=== PATIENT | female | born 1950 | race Caucasian/White ===

== ENCOUNTER 2016-10-31 14:00 | Observation (INO) | payer OTHER ==
[~2016-10-31] VITALS: Ht 154.9 cm; Wt 82.0 kg
[~2016-10-31 14:00] MED LIST: CALCET CREAMY1 EACH PO; DIOVAN320 MG PO; IRON325 MG PO; LO-DOSE ASPIRIN81 M2 PO; NEXIUM40 MG PO; OCUVITE TABLET1 EACH PO; PRAVASTATIN SOD20 MG PO; SYNTHROID88 MCG PO; VITAMIN D31000 UNIT PO
[2016-10-31 15:09] LABS: HEMATOCRIT 41.1 % (36.0-46.0); MCH 29.2 PG (29.0-34.0); MCHC 32.8 G/DL (30.0-36.0); MCV 88.8 FL (83-99); MEAN PLAT.VOLUME 9.3 uM^3 (9.5-12.4); PLATELET COUNT 298 K/uL (156-360); RBC DIS.WIDTH-CV 13.2 % (11.8-14.6); RED BLOOD COUNT 4.63 M/uL (3.80-5.20)
[2016-10-31 15:20] LABS: CHLORIDE 105 mEq/L (99-109); POTASSIUM 4.7 mEq/L (3.7-5.4); SODIUM 139 mEq/L (136-147)
[2016-10-31 15:21] LABS: GLUCOSE 137 mg/dL (70-99)
[2016-10-31 15:23] LABS: ANION GAP 11 MEQ/L (2-14)
[2016-10-31 15:25] LABS: GFR ESTIMATE (CALCULATED) 53 mL/min/
[2016-10-31 15:26] LABS: UREA NITROGEN (BUN) 12 mg/dL (9-23)
[2016-10-31 15:29] LABS: TROP-I INTERPRETATION NEGATIVE; TROPONIN-I < 0.01 ng/mL (0.0-0.30)
[2016-10-31 17:49] LABS: TROP-I INTERPRETATION NEGATIVE; TROPONIN-I < 0.01 ng/mL (0.0-0.30)
[2016-10-31] MEDS ORDERED: ENZYME DIGEST1 EACH PO (18:30)
[2016-10-31] MEDS ORDERED: SYNTHROID88 MCG PO (18:30)
[2016-10-31] MEDS ORDERED: ONE-A-DAY ESSE1 EAC1 PO (18:30)
[2016-10-31 20:56] VITALS: BP 141/67
[2016-11-01 00:07] VITALS: BP 138/66
[2016-11-01 02:37] LABS: TROP-I INTERPRETATION NEGATIVE; TROPONIN-I < 0.01 ng/mL (0.0-0.30)
[2016-11-01 03:24] LABS: HDL CHOLESTEROL 54 MG/DL (Desirable>=50); LDL CHOLESTEROL 132 mg/dL (Desirable<100); NON-HDL CHOLESTEROL 155 mg/dL (Desirable<160); TOTAL CHOLESTEROL 209 mg/dL (Desirable<200); TRIGLYCERIDES 114 MG/DL (Normal: <150)
[2016-11-01 04:12] VITALS: BP 125/75
[2016-11-01 09:21] VITALS: BP 133/74
[2016-11-01 12:37] VITALS: BP 120/72
[2016-11-01] MEDS ORDERED: VENTOLIN HFA18 GM IH (14:08)
[2016-11-01] MEDS ORDERED: NEXIUM40 MG PO (14:09)
[2016-11-02] MEDS ORDERED: BENADRYL50 MG PO (17:10)
[2016-11-02] MEDS ORDERED: ZANTAC150 MG PO (17:11)
== END 2016-11-01 15:55 | disposition home or self-care (01) ==
LOC: EME 14:00 → EDOF 19:13 → 5WEST 19:13 → EDOF 19:13 → 5WEST 20:25
PROVIDERS: Emergency Medicine; Physician Assistant Medical
DX: R07.9 Chest pain, unspecified (principal); R00.2 Palpitations; R06.2 Wheezing; J30.2 Other seasonal allergic rhinitis; K44.9 Diaphragmatic hernia without obstruction or gangrene; K21.9 Gastro-esophageal reflux disease without esophagitis; I12.9 Hypertensive chronic kidney disease with stage 1 through stage 4 chronic kidney disease, or unspecified chronic kidney disease; N18.3 Chronic kidney disease, stage 3 (moderate); Z79.82 Long term (current) use of aspirin; E05.90 Thyrotoxicosis, unspecified without thyrotoxic crisis or storm; E78.5 Hyperlipidemia, unspecified; M79.602 Pain in left arm; Z88.7 Allergy status to serum and vaccine
CPT/HCPCS: 71020; 80048; 80061; 84484; 85027; 93005; 94640 76; 99202; 99281; 99285; G0378; J1650

== ENCOUNTER 2016-11-02 14:09 | Emergency (ER) | payer OTHER ==
[~2016-11-02] VITALS: Ht 154.9 cm; Wt 80.9 kg
[~2016-11-02 14:09] MED LIST changes: +ENZYME DIGEST1 EACH PO; +ONE-A-DAY ESSE1 EAC1 PO; +VENTOLIN HFA18 GM IH
[2016-11-02 15:42] LABS: HEMATOCRIT 43.8 % (36.0-46.0); MCH 28.8 PG (29.0-34.0); MCV 90.1 FL (83-99); MEAN PLAT.VOLUME 9.6 uM^3 (9.5-12.4); PLATELET COUNT 329 K/uL (156-360); RBC DIS.WIDTH-CV 13.6 % (11.8-14.6); RED BLOOD COUNT 4.86 M/uL (3.80-5.20)
[2016-11-02 15:50] LABS: CHLORIDE 108 mEq/L (99-109); SODIUM 142 mEq/L (136-147)
[2016-11-02 15:52] LABS: GLUCOSE 116 mg/dL (70-99)
[2016-11-02 15:54] LABS: ANION GAP 10 MEQ/L (2-14)
[2016-11-02 15:56] LABS: GFR ESTIMATE (CALCULATED) 53 mL/min/
[2016-11-02 15:59] LABS: UREA NITROGEN (BUN) 22 mg/dL (9-23)
[2016-11-02 16:32] LABS: TROP-I INTERPRETATION NEGATIVE; TROPONIN-I < 0.01 ng/mL (0.0-0.30)
[2016-11-02] MEDS ORDERED: BENADRYL50 MG PO (17:10)
[2016-11-02] MEDS ORDERED: ZANTAC150 MG PO (17:11)
[2016-11-02 17:28] VITALS: BP 152/88
== END 2016-11-02 17:32 | disposition home or self-care (01) ==
LOC: EME 14:09
PROVIDERS: Physician Assistant
DX: K22.4 Dyskinesia of esophagus (principal); Z87.442 Personal history of urinary calculi; E78.5 Hyperlipidemia, unspecified; E03.9 Hypothyroidism, unspecified; I10 Essential (primary) hypertension
CPT/HCPCS: 70360; 71020; 80048; 84484; 85027; 93005; 99281; 99284

== ENCOUNTER 2016-11-12 23:19 | Emergency (ER) | payer OTHER ==
[~2016-11-12] VITALS: Ht 154.9 cm; Wt 80.5 kg
[~2016-11-12 23:19] MED LIST changes: +BENADRYL50 MG PO; +ZANTAC150 MG PO
[2016-11-13 00:17] LABS: HEMATOCRIT 38.3 % (36.0-46.0); MCH 29.6 PG (29.0-34.0); MCHC 33.4 G/DL (30.0-36.0); MCV 88.5 FL (83-99); MEAN PLAT.VOLUME 9.8 uM^3 (9.5-12.4); PLATELET COUNT 275 K/uL (156-360); RBC DIS.WIDTH-CV 13.2 % (11.8-14.6); RBC DIS.WIDTH-SD 43.3 % (39-53); RED BLOOD COUNT 4.33 M/uL (3.80-5.20); WHITE BLOOD COUNT 9.5 K/uL (4.1-10.2)
[2016-11-13 00:26] LABS: CHLORIDE 108 mEq/L (99-109); POTASSIUM 3.3 mEq/L (3.7-5.4); SODIUM 144 mEq/L (136-147)
[2016-11-13 00:28] LABS: GLUCOSE 113 mg/dL (70-99)
[2016-11-13 00:29] LABS: ANION GAP 14 MEQ/L (2-14)
[2016-11-13 00:32] LABS: GFR ESTIMATE (CALCULATED) 59 mL/min/
[2016-11-13 00:33] LABS: UREA NITROGEN (BUN) 12 mg/dL (9-23)
[2016-11-13 00:46] LABS: TROP-I INTERPRETATION NEGATIVE; TROPONIN-I < 0.01 ng/mL (0.0-0.30)
[2016-11-13 02:23] VITALS: BP 134/84
[2016-11-14] MEDS ORDERED: KLOR-CON20 MEQ PO (01:17)
== END 2016-11-13 02:26 | disposition home or self-care (01) ==
LOC: EME 23:19
PROVIDERS: Emergency Medicine
DX: I10 Essential (primary) hypertension (principal); R10.10 Upper abdominal pain, unspecified; R07.9 Chest pain, unspecified; R06.02 Shortness of breath; R11.0 Nausea; R53.1 Weakness; E03.9 Hypothyroidism, unspecified; Z79.82 Long term (current) use of aspirin
CPT/HCPCS: 80048; 84484; 85027; 93005; 99281; 99285; J2405; J7040

== ENCOUNTER 2016-11-13 20:53 | Emergency (ER) | payer OTHER ==
[~2016-11-13] VITALS: Ht 154.9 cm; Wt 80.2 kg
[2016-11-13 23:32] LABS: HEMATOCRIT 36.8 % (36.0-46.0); MCH 29.1 PG (29.0-34.0); MCHC 32.6 G/DL (30.0-36.0); MCV 89.1 FL (83-99); MEAN PLAT.VOLUME 10.2 uM^3 (9.5-12.4); PLATELET COUNT 271 K/uL (156-360); RBC DIS.WIDTH-CV 13.5 % (11.8-14.6); RBC DIS.WIDTH-SD 43.8 % (39-53); RED BLOOD COUNT 4.13 M/uL (3.80-5.20); WHITE BLOOD COUNT 10.2 K/uL (4.1-10.2)
[2016-11-13 23:45] LABS: CHLORIDE 110 mEq/L (99-109); POTASSIUM 2.9 mEq/L (3.7-5.4); SODIUM 147 mEq/L (136-147)
[2016-11-13 23:46] LABS: GLUCOSE 105 mg/dL (70-99)
[2016-11-13 23:48] LABS: ANION GAP 16 MEQ/L (2-14)
[2016-11-13 23:50] LABS: GFR ESTIMATE (CALCULATED) 59 mL/min/
[2016-11-13 23:51] LABS: UREA NITROGEN (BUN) 8 mg/dL (9-23)
[2016-11-13 23:52] LABS: TROP-I INTERPRETATION NEGATIVE; TROPONIN-I < 0.01 ng/mL (0.0-0.30)
[2016-11-14] MEDS ORDERED: KLOR-CON20 MEQ PO (01:17)
[2016-11-14 02:36] VITALS: BP 152/81
== END 2016-11-14 02:36 | disposition home or self-care (01) ==
LOC: EME 20:53
PROVIDERS: Emergency Medicine
DX: R07.0 Pain in throat (principal); E87.6 Hypokalemia; R47.02 Dysphasia; T78.40XA Allergy, unspecified, initial encounter; I10 Essential (primary) hypertension; E03.9 Hypothyroidism, unspecified; K58.9 Irritable bowel syndrome, unspecified; Z79.82 Long term (current) use of aspirin
CPT/HCPCS: 70491; 80048 91; 84484; 85027; 93005; 99281; 99285; J2405; J7040

== ENCOUNTER 2016-12-12 05:30 | Emergency (ER) | payer OTHER ==
[~2016-12-12] VITALS: Ht 154.9 cm; Wt 77.6 kg
[~2016-12-12 05:30] MED LIST changes: +KLOR-CON20 MEQ PO
[2016-12-12 05:52] LABS: HEMATOCRIT 41.2 % (36.0-46.0); MCH 29.2 PG (29.0-34.0); MCV 88.6 FL (83-99); MEAN PLAT.VOLUME 9.9 uM^3 (9.5-12.4); PLATELET COUNT 294 K/uL (156-360); RBC DIS.WIDTH-CV 13.4 % (11.8-14.6); RBC DIS.WIDTH-SD 43.5 % (39-53); RED BLOOD COUNT 4.65 M/uL (3.80-5.20); WHITE BLOOD COUNT 9.6 K/uL (4.1-10.2)
[2016-12-12 05:57] LABS: PROTHROMBIN TIME 10.5 SEC (10.2-12.9)
[2016-12-12 05:59] LABS: D-DIMER ELISA < 150.00 ng/mLDDU (<230)
[2016-12-12 06:00] LABS: PTT 31.2 SEC (25-37)
[2016-12-12 06:03] LABS: CHLORIDE 106 mEq/L (99-109); POTASSIUM 3.7 mEq/L (3.7-5.4); SODIUM 141 mEq/L (136-147)
[2016-12-12 06:05] LABS: GLUCOSE 122 mg/dL (70-99)
[2016-12-12 06:06] LABS: ANION GAP 12 MEQ/L (2-14)
[2016-12-12 06:08] LABS: GFR ESTIMATE (CALCULATED) 43 mL/min/
[2016-12-12 06:09] LABS: UREA NITROGEN (BUN) 19 mg/dL (9-23)
[2016-12-12 06:12] LABS: TROP-I INTERPRETATION NEGATIVE; TROPONIN-I < 0.01 ng/mL (0.0-0.30)
[2016-12-12 09:08] LABS: TROP-I INTERPRETATION NEGATIVE; TROPONIN-I < 0.01 ng/mL (0.0-0.30)
[2016-12-12 09:38] VITALS: BP 137/76
== END 2016-12-12 09:39 | disposition home or self-care (01) ==
LOC: EME → EDBD 05:30 → EME 09:39
PROVIDERS: Emergency Medicine; Nurse Practitioner Family
DX: R07.9 Chest pain, unspecified (principal); K21.9 Gastro-esophageal reflux disease without esophagitis; I10 Essential (primary) hypertension; E03.9 Hypothyroidism, unspecified; Z79.82 Long term (current) use of aspirin
CPT/HCPCS: 71020; 80048; 84484; 85027; 85379; 85610; 85730; 93005; 99281; 99284; J2405; J7030

== ENCOUNTER 2017-01-05 09:48 | Day surgery (SDC) | payer OTHER ==
[~2017-01-05] VITALS: Ht 152.4 cm; Wt 76.0 kg
[~2017-01-05 09:48] MED LIST changes: +ZYRTEC10 M2 PO
[2017-01-05] MEDS ORDERED: ASPIRIN325 MG PO (10:25)
== END 2017-01-05 15:30 | disposition home or self-care (01) ==
LOC: CATH 09:48
DX: R07.89 Other chest pain (principal); I10 Essential (primary) hypertension; K21.9 Gastro-esophageal reflux disease without esophagitis; K44.9 Diaphragmatic hernia without obstruction or gangrene; E03.9 Hypothyroidism, unspecified
CPT/HCPCS: C1769; C1887; J1200; J1644; J2250; J3010

== ENCOUNTER 2017-01-16 23:09 | Observation (INO) | payer OTHER ==
[~2017-01-16] VITALS: Ht 152.4 cm; Wt 75.0 kg
[~2017-01-16 23:09] MED LIST changes: +ASPIRIN325 MG PO; +DIOVAN HCT 31 TABLET PO; -DIOVAN320 MG PO
[2017-01-16 23:39] LABS: HEMATOCRIT 44.4 % (36.0-46.0); MCH 28.7 PG (29.0-34.0); MCHC 32.4 G/DL (30.0-36.0); MCV 88.6 FL (83-99); MEAN PLAT.VOLUME 10.3 uM^3 (9.5-12.4); PLATELET COUNT 322 K/uL (156-360); RBC DIS.WIDTH-CV 13.6 % (11.8-14.6); RED BLOOD COUNT 5.01 M/uL (3.80-5.20); WHITE BLOOD COUNT 9.7 K/uL (4.1-10.2)
[2017-01-16 23:48] LABS: CHLORIDE 103 mEq/L (99-109); POTASSIUM 3.2 mEq/L (3.7-5.4); SODIUM 141 mEq/L (136-147)
[2017-01-16 23:50] LABS: GLUCOSE 124 mg/dL (70-99)
[2017-01-16 23:51] LABS: ANION GAP 13 MEQ/L (2-14)
[2017-01-16 23:54] LABS: GFR ESTIMATE (CALCULATED) 59 mL/min/
[2017-01-16 23:55] LABS: UREA NITROGEN (BUN) 14 mg/dL (9-23)
[2017-01-16 23:59] LABS: TROP-I INTERPRETATION NEGATIVE; TROPONIN-I < 0.01 ng/mL (0.0-0.30)
[2017-01-17 02:26] LABS: TOTAL BILIRUBIN 0.4 mg/dL (0.0-1.0)
[2017-01-17 02:28] LABS: ALKALINE PHOSPHATASE 132 IU/L (3-129)
[2017-01-17 02:30] LABS: DIRECT BILIRUBIN 0.2 mg/dL (0.0-0.3)
[2017-01-17 02:31] LABS: LIPASE 30 U/L (1.0-51.0)
[2017-01-17 06:22] VITALS: BP 170/83
[2017-01-17 09:20] VITALS: BP 175/77
[2017-01-17 09:20] LABS: TROP-I INTERPRETATION NEGATIVE; TROPONIN-I 0.03 ng/mL (0.0-0.30)
[2017-01-17 11:33] VITALS: BP 134/71
[2017-01-17] MEDS ORDERED: ACID CONTROL150 MG PO (11:44)
[2017-01-17] MEDS ORDERED: AMLODIPINE BESYL5 MG PO (12:01)
[2017-01-17] MEDS ORDERED: K-DUR20 MEQ PO (12:10)
[2017-01-17 14:32] LABS: TROP-I INTERPRETATION NEGATIVE; TROPONIN-I 0.01 ng/mL (0.0-0.30)
[2017-01-17] MEDS ORDERED: ANTIVERT25 MG PO (14:43)
[2017-01-17 14:48] VITALS: BP 116/79
[2017-01-17] MEDS ORDERED: DIOVAN320 MG PO (16:17)
== END 2017-01-17 16:30 | disposition home or self-care (01) ==
LOC: EME 23:09 → ENPENDDIS 01-17 → EDOF 01-17 05:05 → ENRESERV 01-17 05:08 → 5WEST 01-17 06:09
PROVIDERS: Hospitalist
DX: R07.9 Chest pain, unspecified (principal); I10 Essential (primary) hypertension; K21.9 Gastro-esophageal reflux disease without esophagitis; E87.6 Hypokalemia; E03.9 Hypothyroidism, unspecified; K58.0 Irritable bowel syndrome with diarrhea; Z87.442 Personal history of urinary calculi; J30.9 Allergic rhinitis, unspecified; Z88.1 Allergy status to other antibiotic agents; Z88.7 Allergy status to serum and vaccine; Z88.8 Allergy status to other drugs, medicaments and biological substances; Z90.49 Acquired absence of other specified parts of digestive tract
CPT/HCPCS: 70450; 70551; 71020; 80048; 80076; 83690; 83735; 84100; 84484; 85027; 93005; 99281; 99284; G0378; J1650; J2060; J3480; J7030

== ENCOUNTER 2017-01-23 13:52 | Emergency (ER) | payer OTHER ==
[~2017-01-23] VITALS: Ht 152.4 cm; Wt 73.6 kg
[~2017-01-23 13:52] MED LIST changes: +ACID CONTROL150 MG PO; +AMLODIPINE BESYL5 MG PO; +ANTIVERT25 MG PO; +DIOVAN320 MG PO; +K-DUR20 MEQ PO
[2017-01-23 14:54] LABS: EOSINOPHIL (%) 0.9 % (0-5); EOSINOPHIL COUNT 0.1 K/uL (0-0.3); HEMATOCRIT 43.5 % (36.0-46.0); IMMATURE GRANULOCYTE (%) 0.4 % (0.0-0.7); LYMPHOCYTE COUNT 1.7 K/uL (1.0-2.8); MCH 28.5 PG (29.0-34.0); MCHC 31.7 G/DL (30.0-36.0); MCV 89.7 FL (83-99); MEAN PLAT.VOLUME 10.1 uM^3 (9.5-12.4); MONOCYTE (%) 8.5 % (3-12); MONOCYTE COUNT 0.9 K/uL (0-0.8); NEUTROPHIL (%) 74.4 % (45-76); PLATELET COUNT 320 K/uL (156-360); RBC DIS.WIDTH-CV 13.7 % (11.8-14.6); RBC DIS.WIDTH-SD 44.9 % (39-53); RED BLOOD COUNT 4.85 M/uL (3.80-5.20); WHITE BLOOD COUNT 10.7 K/uL (4.1-10.2)
[2017-01-23 14:59] LABS: CHLORIDE 105 mEq/L (99-109); POTASSIUM 4.9 mEq/L (3.7-5.4); SODIUM 139 mEq/L (136-147)
[2017-01-23 15:02] LABS: GLUCOSE 137 mg/dL (70-99)
[2017-01-23 15:03] LABS: ANION GAP 11 MEQ/L (2-14); TOTAL BILIRUBIN 0.4 mg/dL (0.0-1.0)
[2017-01-23 15:05] LABS: ALKALINE PHOSPHATASE 128 IU/L (3-129); GFR ESTIMATE (CALCULATED) 48 mL/min/
[2017-01-23 15:06] LABS: UREA NITROGEN (BUN) 13 mg/dL (9-23)
[2017-01-23 15:14] LABS: TROP-I INTERPRETATION NEGATIVE; TROPONIN-I < 0.01 ng/mL (0.0-0.30)
[2017-01-23 15:48] VITALS: BP 107/80
== END 2017-01-23 15:54 | disposition home or self-care (01) ==
LOC: EME 13:52
PROVIDERS: Emergency Medicine
DX: R00.2 Palpitations (principal); I10 Essential (primary) hypertension; K21.9 Gastro-esophageal reflux disease without esophagitis; E03.9 Hypothyroidism, unspecified; K58.9 Irritable bowel syndrome, unspecified; K44.9 Diaphragmatic hernia without obstruction or gangrene; K31.84 Gastroparesis
CPT/HCPCS: 71010; 80053; 84484; 85025; 93005; 99281; 99284

== ENCOUNTER 2017-01-28 05:14 | Emergency (ER) | payer OTHER ==
[~2017-01-28] VITALS: Ht 152.4 cm; Wt 168.9 kg
[2017-01-28 06:27] LABS: HEMATOCRIT 41.3 % (36.0-46.0); MCH 28.8 PG (29.0-34.0); MCHC 32.4 G/DL (30.0-36.0); MCV 88.6 FL (83-99); PLATELET COUNT 300 K/uL (156-360); RBC DIS.WIDTH-CV 13.6 % (11.8-14.6); RBC DIS.WIDTH-SD 44.3 % (39-53); RED BLOOD COUNT 4.66 M/uL (3.80-5.20); WHITE BLOOD COUNT 9.7 K/uL (4.1-10.2)
[2017-01-28 06:35] LABS: CHLORIDE 108 mEq/L (99-109); D-DIMER ELISA < 150.00 ng/mLDDU (<230); POTASSIUM 4.3 mEq/L (3.7-5.4); SODIUM 139 mEq/L (136-147)
[2017-01-28 06:36] LABS: GLUCOSE 107 mg/dL (70-99)
[2017-01-28 06:38] LABS: ANION GAP 8 MEQ/L (2-14)
[2017-01-28 06:40] LABS: GFR ESTIMATE (CALCULATED) 59 mL/min/
[2017-01-28 06:41] LABS: UREA NITROGEN (BUN) 13 mg/dL (9-23)
[2017-01-28 06:47] LABS: TROP-I INTERPRETATION NEGATIVE; TROPONIN-I < 0.01 ng/mL (0.0-0.30)
[2017-01-28 10:19] VITALS: BP 122/87
== END 2017-01-28 10:34 | disposition home or self-care (01) ==
LOC: EME → EDBD 05:14 → EME 05:14
PROVIDERS: Emergency Medicine
DX: K21.0 Gastro-esophageal reflux disease with esophagitis (principal); J32.3 Chronic sphenoidal sinusitis; Z87.442 Personal history of urinary calculi; K58.0 Irritable bowel syndrome with diarrhea; E03.9 Hypothyroidism, unspecified; K31.84 Gastroparesis; Z88.8 Allergy status to other drugs, medicaments and biological substances; I10 Essential (primary) hypertension
CPT/HCPCS: 71010; 80048; 84484; 85027; 85379; 93005; 99281; 99285

== ENCOUNTER 2017-03-12 10:44 | Emergency (ER) | payer OTHER ==
[~2017-03-12] VITALS: Ht 154.9 cm; Wt 72.1 kg
[2017-03-12] MEDS ORDERED: DOXYCYCLINE HY100 MG PO (13:02)
[2017-03-12 13:27] VITALS: BP 174/80
== END 2017-03-12 13:29 | disposition home or self-care (01) ==
LOC: EME 10:44
DX: T78.40XA Allergy, unspecified, initial encounter (principal); E03.9 Hypothyroidism, unspecified; K58.9 Irritable bowel syndrome, unspecified; Z87.442 Personal history of urinary calculi; Z88.1 Allergy status to other antibiotic agents; Z88.7 Allergy status to serum and vaccine; Z88.8 Allergy status to other drugs, medicaments and biological substances
CPT/HCPCS: 99281; 99284

== ENCOUNTER → 2017-04-26 | Outpatient (CLI) | payer OTHER ==
[~2017-04-26] MED LIST changes: +DOXYCYCLINE HY100 MG PO
== END | disposition home or self-care (01) ==
LOC: NUC 07:41
DX: I10 Essential (primary) hypertension (principal); I70.1 Atherosclerosis of renal artery
CPT/HCPCS: 78072; A9500

== ENCOUNTER 2017-06-10 16:52 | Emergency (ER) | payer OTHER ==
[~2017-06-10] VITALS: Ht 154.9 cm; Wt 66.9 kg
[2017-06-10 17:59] LABS: HEMATOCRIT 41.9 % (36.0-46.0); MCH 29.5 PG (29.0-34.0); MCHC 33.4 G/DL (30.0-36.0); MCV 88.2 FL (83-99); PLATELET COUNT 316 K/uL (156-360); RBC DIS.WIDTH-CV 13.5 % (11.8-14.6); RBC DIS.WIDTH-SD 44.1 % (39-53); RED BLOOD COUNT 4.75 M/uL (3.80-5.20); WHITE BLOOD COUNT 8.9 K/uL (4.1-10.2)
[2017-06-10 18:12] LABS: CHLORIDE 107 mEq/L (99-109); POTASSIUM 4.1 mEq/L (3.7-5.4); SODIUM 141 mEq/L (136-147)
[2017-06-10 18:14] LABS: GLUCOSE 113 mg/dL (70-99)
[2017-06-10 18:17] LABS: GFR ESTIMATE (CALCULATED) 59 mL/min/
[2017-06-10 18:18] LABS: UREA NITROGEN (BUN) 13 mg/dL (9-23)
[2017-06-10 18:21] LABS: TROP-I INTERPRETATION NEGATIVE; TROPONIN-I < 0.01 ng/mL (0.0-0.30)
[2017-06-10 21:09] LABS: THYROTROPIN (TSH) 0.37 MIU/L (0.4-5.5)
[2017-06-10] MEDS ORDERED: CARAFATE1 GM PO (21:43)
[2017-06-10 22:10] VITALS: BP 130/70
== END 2017-06-10 22:19 | disposition home or self-care (01) ==
LOC: EME 16:52
DX: K29.70 Gastritis, unspecified, without bleeding (principal); R00.2 Palpitations; E03.9 Hypothyroidism, unspecified
CPT/HCPCS: 71046; 80048; 83735; 84439; 84443; 84484; 85027; 93005; 99281; 99284

== ENCOUNTER 2017-06-26 22:05 | Observation (INO) | payer OTHER ==
[~2017-06-26] VITALS: Ht 152.4 cm; Wt 66.5 kg
[~2017-06-26 22:05] MED LIST changes: +CARAFATE1 GM PO
[2017-06-27] MEDS ORDERED: VISTARIL25 MG PO ×2 (01:22→08:29)
[2017-06-27 04:20] VITALS: BP 135/68
[2017-06-27] MEDS ORDERED: [UNRECOGNIZED DRUG - OTHER] PO (08:24)
[2017-06-27] MEDS ORDERED: VITAMIN D31000 UNI2 PO (08:27)
[2017-06-27 08:56] VITALS: BP 127/65
[2017-06-27] MEDS ORDERED: ACID CONTROL150 MG PO (10:46)
[2017-06-27] MEDS ORDERED: BENADRYL25 MG PO (10:46)
[2017-06-27 11:42] VITALS: BP 126/70
[2017-06-27] MEDS ORDERED: FAMOTIDINE20 MG PO (12:20)
== END 2017-06-27 12:22 | disposition home or self-care (01) ==
LOC: EME 22:05 → ENPENDDIS 06-27 → EDOF 06-27 03:06 → ENRESERV 06-27 03:07 → 5WEST 06-27 04:01
DX: T47.1X5A Adverse effect of other antacids and anti-gastric-secretion drugs, initial encounter (principal); J30.9 Allergic rhinitis, unspecified; I10 Essential (primary) hypertension; E78.5 Hyperlipidemia, unspecified; E03.9 Hypothyroidism, unspecified; K58.9 Irritable bowel syndrome, unspecified; K21.9 Gastro-esophageal reflux disease without esophagitis; K44.9 Diaphragmatic hernia without obstruction or gangrene; K31.84 Gastroparesis; Z90.49 Acquired absence of other specified parts of digestive tract; Z88.7 Allergy status to serum and vaccine; Z88.8 Allergy status to other drugs, medicaments and biological substances; Z79.82 Long term (current) use of aspirin
CPT/HCPCS: 99281; 99284; G0378; J1200; J7030; S0028

== ENCOUNTER 2017-06-30 18:03 | Observation (INO) | payer OTHER ==
[~2017-06-30] VITALS: Ht 152.4 cm; Wt 66.7 kg
[~2017-06-30 18:03] MED LIST changes: +BENADRYL25 MG PO; +FAMOTIDINE20 MG PO; +VISTARIL25 MG PO; +VITAMIN D31000 UNI2 PO; +[UNRECOGNIZED DRUG - OTHER] PO
[2017-06-30] MEDS ORDERED: PEPCID20 MG PO (23:53)
[2017-06-30] MEDS ORDERED: DIOVAN320 MG PO (23:53)
[2017-06-30] MEDS ORDERED: NEXIUM40 MG PO (23:54)
[2017-06-30] MEDS ORDERED: ZANTAC150 MG PO (23:55)
[2017-07-01 02:37] VITALS: BP 144/75
[2017-07-01 05:49] LABS: CHLORIDE 106 MEQ/L (99-109); CREATININE 0.9 MG/DL (0.6-1.3); GFR ESTIMATE (CALCULATED) > 59 mL/min/; GLUCOSE 137 mg/dL (70-99); POTASSIUM 4.2 MEQ/L (3.7-5.4); SODIUM 143 MEQ/L (136-147); UREA NITROGEN (BUN) 9 mg/dL (9-23)
[2017-07-01 08:11] VITALS: BP 128/66
[2017-07-01] MEDS ORDERED: MAG-AL PLUS SUS30 ML PO (12:09)
[2017-07-01 12:22] VITALS: BP 143/75
[2017-07-02] MEDS ORDERED: DECADRON1 MG PO (17:48)
== END 2017-07-01 13:44 | disposition home or self-care (01) ==
LOC: EME 18:03 → EDOF 07-01 01:34 → ENRESERV 07-01 01:36 → 5WEST 07-01 02:34
PROVIDERS: Hospitalist
DX: T78.3XXA Angioneurotic edema, initial encounter (principal); R13.10 Dysphagia, unspecified; T47.1X5A Adverse effect of other antacids and anti-gastric-secretion drugs, initial encounter; R22.0 Localized swelling, mass and lump, head; K21.9 Gastro-esophageal reflux disease without esophagitis; I10 Essential (primary) hypertension; E03.9 Hypothyroidism, unspecified; E78.5 Hyperlipidemia, unspecified; K58.9 Irritable bowel syndrome, unspecified; K44.9 Diaphragmatic hernia without obstruction or gangrene; K31.84 Gastroparesis; Z90.49 Acquired absence of other specified parts of digestive tract; Z88.1 Allergy status to other antibiotic agents; Z88.8 Allergy status to other drugs, medicaments and biological substances; Z88.7 Allergy status to serum and vaccine; Z82.49 Family history of ischemic heart disease and other diseases of the circulatory system; Z82.5 Family history of asthma and other chronic lower respiratory diseases
CPT/HCPCS: 70360; 80048; 99281; 99285; G0378; J1100; J1200; S0028

== ENCOUNTER 2017-07-02 16:29 | Emergency (ER) | payer OTHER ==
[~2017-07-02] VITALS: Ht 152.4 cm; Wt 65.4 kg
[~2017-07-02 16:29] MED LIST changes: +MAG-AL PLUS SUS30 ML PO; +PEPCID20 MG PO
[2017-07-02] MEDS ORDERED: DECADRON1 MG PO (17:48)
[2017-07-02 17:57] VITALS: BP 138/90
== END 2017-07-02 18:04 | disposition home or self-care (01) ==
LOC: EME 16:29
DX: L27.0 Generalized skin eruption due to drugs and medicaments taken internally (principal); T50.995A Adverse effect of other drugs, medicaments and biological substances, initial encounter; Z87.442 Personal history of urinary calculi; K44.9 Diaphragmatic hernia without obstruction or gangrene; E03.9 Hypothyroidism, unspecified; K58.9 Irritable bowel syndrome, unspecified; D64.9 Anemia, unspecified; Z88.1 Allergy status to other antibiotic agents; Z88.8 Allergy status to other drugs, medicaments and biological substances
CPT/HCPCS: 70360; 99281; 99283

== ENCOUNTER 2017-07-10 06:04 | Emergency (ER) | payer OTHER ==
[~2017-07-10] VITALS: Ht 152.4 cm; Wt 61.4 kg
[~2017-07-10 06:04] MED LIST changes: +DECADRON1 MG PO
[2017-07-10 06:38] LABS: HEMATOCRIT 44.9 % (36.0-46.0); HEMOGLOBIN 15.2 G/DL (11.9-15.5); MCHC 33.9 G/DL (30.0-36.0); MCV 88.6 FL (83-99); RBC DIS.WIDTH-CV 14.1 % (11.8-14.6); RBC DIS.WIDTH-SD 45.5 % (39-53); RED BLOOD COUNT 5.07 M/uL (3.80-5.20); WHITE BLOOD COUNT 9.9 K/uL (4.1-10.2)
[2017-07-10 06:45] LABS: ALBUMIN 4.4 g/dL (3.2-4.8)
[2017-07-10 06:46] LABS: CHLORIDE 108 mEq/L (99-109); POTASSIUM 3.8 mEq/L (3.7-5.4); SODIUM 141 mEq/L (136-147)
[2017-07-10 06:48] LABS: GLUCOSE 96 mg/dL (70-99); TOTAL PROTEIN 7.6 g/dL (6.4-8.3)
[2017-07-10 06:50] LABS: TOTAL BILIRUBIN 0.6 mg/dL (0.0-1.0)
[2017-07-10 06:51] LABS: ALKALINE PHOSPHATASE 119 IU/L (3-129)
[2017-07-10 06:52] LABS: CREATININE 0.9 mg/dL (0.6-1.3); GFR ESTIMATE (CALCULATED) > 59 mL/min/
[2017-07-10 06:53] LABS: AST (GOT) 31 IU/L (2-34); UREA NITROGEN (BUN) 12 mg/dL (9-23)
[2017-07-10 06:55] LABS: ALT (GPT) 39 IU/L (3-49); LIPASE 14 U/L (1.0-51.0)
[2017-07-10 07:04] LABS: TROP-I INTERPRETATION NEGATIVE; TROPONIN-I < 0.01 ng/mL (0.0-0.30)
[2017-07-10 07:17] LABS: PLAT.SUFFICIENCY ADEQUATE
[2017-07-10 07:23] LABS: PLATELET COUNT 208 K/uL (156-360)
[2017-07-10] MEDS ORDERED: BENTYL10 MG PO (08:37)
[2017-07-10] MEDS ORDERED: CARAFATE1 GM PO (08:37)
[2017-07-10 08:43] VITALS: BP 137/69
== END 2017-07-10 08:43 | disposition home or self-care (01) ==
LOC: EME → EDBD 06:04 → EME 06:04
PROVIDERS: Nurse Practitioner Family
DX: K52.9 Noninfective gastroenteritis and colitis, unspecified (principal); K44.9 Diaphragmatic hernia without obstruction or gangrene; K58.9 Irritable bowel syndrome, unspecified; E03.9 Hypothyroidism, unspecified; K31.84 Gastroparesis; K21.9 Gastro-esophageal reflux disease without esophagitis; Z88.8 Allergy status to other drugs, medicaments and biological substances; Z88.1 Allergy status to other antibiotic agents; Z87.442 Personal history of urinary calculi
CPT/HCPCS: 74177; 80053; 81003; 83690; 84484; 85027; 93005; 99281; 99285; J7030

== ENCOUNTER → 2017-09-30 | Outpatient (CLI) | payer OTHER ==
[~2017-09-30] MED LIST changes: +BENTYL10 MG PO
== END | disposition home or self-care (01) ==
LOC: NUC 06:54
DX: Z87.19 Personal history of other diseases of the digestive system (principal)
CPT/HCPCS: 78264; A9541